=== PATIENT | female | born 1970 | race Caucasian/White ===

== ENCOUNTER 2018-02-05 19:18 | Emergency (ER) | payer BC, OTHER ==
[2018-02-05 20:28] LABS: URINE BLOOD (Dip) POC Negative (NEGATIVE); URINE GLUCOSE (Dip) POC Negative (NEGATIVE); URINE KETONES (Dip) POC Negative (NEGATIVE); URINE LEUKOCYTE EST (Dip) POC Negative (NEGATIVE); URINE NITRITE (Dip) POC Negative (NEGATIVE); URINE TOTAL PROTEIN POC 1+ (NEGATIVE)
[2018-02-05] MEDS: CEFTRIAXONE 250 MG INJ IM (20:49)
[2018-02-05] MEDS: AZITHROMYCIN 250 MG TAB PO (20:49)
[2018-02-05] MEDS: LIDOCAINE 1% (MDV) 10 ML INJ INFIL (20:50)
== END 2018-02-05 21:19 | disposition home or self-care (01) ==
LOC: FTE 19:18
DX: Z20.2 Contact with and (suspected) exposure to infections with a predominantly sexual mode of transmission (principal)
CPT/HCPCS: 81003; 81025; 87591; 96372; 99284-25